=== PATIENT | female | born 1960 | race African-American/Black ===

== ENCOUNTER 2020-06-20 20:46 | Emergency (ER) | payer OTHER ==
[2020-06-20] MEDS ORDERED: Sodium Bicarb 50 MEQ/50 ML Abboject 8.4% SYRINGE ONE (21:07)
[2020-06-20] MEDS ORDERED: Calcium Chloride 1 GM/10 ML Abboject SYRINGE ONE (21:07)
[2020-06-20] MEDS ORDERED: EPINEPHrine 1 MG/10 ML Abboject SYRINGE ONE (21:07)
[2020-06-21 05:18] LABS: INR-International Normal Ratio 1.5; PTT 61.9 sec (22.9-36.1); Prothrombin Time 18.3 sec (12.0-14.7)
[2020-06-21 05:20] LABS: #Eosinphils 0.1 thou/uL (0.0-0.7); #Lymphocytes 3.4 thou/uL (1.20-3.40); #Monocytes 0.3 thou/uL (0.11-0.59); #Neutrophils 5.5 thou/uL (1.40-6.50); %Basophils 0.2 % (0.0-1.0); %Eosinophils 1.5 % (0.0-10.0); %Lymphocytes 36.1 % (21.0-51.0); %Monocytes 3.4 % (0.0-10.0); %Neutrophils 58.8 % (42.0-75.0); Hemoglobin 11.6 g/dL (12.0-16.0); Mean Corpuscular HGB CONC 31.5 g/dL (32.0-36.0); Mean Corpuscular Hemoglobin 33.2 pg (27.0-31.0); Mean Platelet Volume 9.3 fL (7.4-10.4); Platelet Count 119 thou/uL (130-400); RBC Distribution Width 12.3 % (11.5-14.5); Red Blood Cell (RBC) Count 3.48 mill/uL (4.20-5.40); White Blood Cell (WBC) Count 9.4 thou/uL (4.8-10.8)
[2020-06-21 08:10] LABS: ALT (SGPT) 113 U/L (8-55); AST (SGOT) 182 U/L (5-34); Albumin 2.8 g/dL (3.4-4.8); Alkaline Phosphatase 81 U/L (40-110); Anion Gap 29 mmol/L (10-20); BUN (Urea Nitrogen) 9 mg/dL (9.8-20.1); Bilirubin, Total 0.2 mg/dL (0.2-1.2); CK (CPK) 334 U/L (29-168); Calc. Creatinine Clearance 0 mL/min (70-130); Calcium 7.6 mg/dL (7.8-10.44); Carbon Dioxide 10 mmol/L (23-31); Chloride 104 mmol/L (98-107); Globulin 1.9 g/dL (2.4-3.5); Glucose 516 mg/dL (80-115); Magnesium 2.2 mg/dL (1.6-2.6); Potassium 3.8 mmol/L (3.5-5.1); Protein, Total 4.7 g/dL (5.8-8.1); Sodium 139 mmol/L (136-145)
== END 2020-06-20 21:09 | disposition expired ==
LOC: EDBD 20:46 → ERS 20:46
DX: I46.9 Cardiac arrest, cause unspecified (principal); I21.3 ST elevation (STEMI) myocardial infarction of unspecified site; E11.9 Type 2 diabetes mellitus without complications; E78.5 Hyperlipidemia, unspecified; E78.00 Pure hypercholesterolemia, unspecified; I10 Essential (primary) hypertension; J43.9 Emphysema, unspecified; F17.210 Nicotine dependence, cigarettes, uncomplicated
CPT/HCPCS: 80053; 82550; 82553; 83735; 83880; 84484; 85025; 85610; 85730; 92950; 93005; 94002; 94760; 96374; 96375; J0171